=== PATIENT | male | born 1985 | race Caucasian/White ===

== ENCOUNTER 2019-06-28 11:41 | Emergency (ER) | payer SELFPAY ==
[~2019-06-28] VITALS: Ht 175.3 cm; Wt 91.7 kg
--- NOTE | 2019-06-28 12:01 | NUR ---
FIRST CONTACT WITH PT. PT WAS SENT FROM FOR INTERMITTENT CHEST PAIN WITH N/V X1 MO, SOB RESOLVED. PT HAD PNA AND COMPLETED ABX. PT C/O ABD PAIN/N/V/DZY AT THIS TIME. PT'S AOX4. RESPS EVEN AND UNLABORED. ALL MONITORS IN PLACE. CALL LIGHT WITHIN REACH. 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
[2019-06-28] MEDS ORDERED: ASPIRIN 81 MG TABLET CHEW ONE (12:18)
[2019-06-28] MEDS ORDERED: ONDANSETRON 2MG/ML, 2ML ONE (12:18)
[2019-06-28 12:23] LABS: BASOPHILS # (AUTO) 0.02 x10^3/uL (0-0.1); BASOPHILS % (AUTO) 0 % (0-1); EOSINOPHILS # (AUTO) 0.06 x10^3/uL (0-0.4); EOSINOPHILS % (AUTO) 1 % (1-7); LYMPHOCYTES # (AUTO) 1.06 x10^3/uL (1-3.4); LYMPHOCYTES % (AUTO) 17 % (22-44); MD NO; MEAN CORPUSCULAR HEMOGLOBIN 32.2 pg (27.5-34.5); MEAN CORPUSCULAR HGB CONC 33.9 g/dL (33.2-36.2); MEAN PLATELET VOLUME 7.6 fL (7.4-10.4); MONOCYTES # (AUTO) 0.47 x10^3/uL (0.2-0.8); MONOCYTES % (AUTO) 8 % (2-9); NEUTROPHILS % (AUTO) 74 % (42-75); PLATELET COUNT 325 x10^3/uL (130-400); RED BLOOD COUNT 4.96 x10^6/uL (4.38-5.82); RED CELL DISTRIBUTION WIDTH 13.4 % (9.4-14.8)
--- NOTE | 2019-06-28 12:27 | NUR ---
PT REFUSED NAUSEA MEDS AT THIS TIME. PT MEDICATED PER EMAR. PT TOLERATED WELL.
[2019-06-28] MEDS ORDERED: ONDANSETRON 2MG/ML, 2ML IVPush ONE (12:30)
[2019-06-28] MEDS ORDERED: ASPIRIN 81 MG TABLET CHEW PO ONE (12:30)
[2019-06-28] MEDS ORDERED: SODIUM CHLORIDE FLUSH 10ML SYR IVF ONE (12:30)
[2019-06-28 12:33] LABS: ALANINE AMINOTRANSFERASE 71 U/L (12-78); ALBUMIN 4.1 g/dL (3.4-5.0); ANION GAP 4 mmol/L (5-15); CALCIUM 8.9 mg/dL (8.5-10.1); CHLORIDE 109 mmol/L (98-107); CREATININE 1.14 mg/dL (0.7-1.3)
[2019-06-28 12:38] LABS: ALKALINE PHOSPHATASE 97 U/L (45-117); BILIRUBIN,TOTAL 0.9 mg/dL (0.2-1.0); TOTAL PROTEIN 7.6 g/dL (6.4-8.2); TROPONIN I < 0.015 ng/mL (0.000-0.045)
[2019-06-28 13:18] VITALS: BP 113/75
[2019-06-28] MEDS ORDERED: MAALOX/HYOSCYAMINE/LIDOCAINE 45 ML BTL ONE (13:45)
--- NOTE | 2019-06-28 13:47 | NUR ---
PT MEDICATED PER EMAR. PT TOLERATED WELL.
[2019-06-28] MEDS ORDERED: MAALOX/HYOSCYAMINE/LIDOCAINE 45 ML BTL PO ONE (14:00)
--- NOTE | 2019-06-28 14:32 | NUR ---
Patient given discharge instructions and they have confirmed that they understand the instructions. Patient ambulatory with steady gait.
== END 2019-06-28 14:34 | disposition home or self-care (01) ==
LOC: ED 14:25
DX: R07.89 Other chest pain (principal); R11.2 Nausea with vomiting, unspecified
CPT/HCPCS: 36415; 71045; 80053; 83690; 83880; 84484; 85025; 93005; 99284

== ENCOUNTER 2019-09-27 14:48 | Emergency (ER) | payer OTHER ==
[~2019-09-27] VITALS: Ht 175.3 cm; Wt 92.8 kg
[2019-09-27] MEDS ORDERED: SODIUM CHLORIDE FLUSH 10ML SYR IVF ONE (15:30)
[2019-09-27] MEDS ORDERED: SODIUM CHLORIDE 0.9% 1,000ML IVBOLUS ONE (15:30)
[2019-09-27] MEDS ORDERED: ONDANSETRON 2MG/ML, 2ML IVPush ONE (15:30)
--- NOTE | 2019-09-27 15:45 | NUR ---
PT TO ROOM 34 PER PEDIS. PT COMES FROM WITH COMPLAINTS OF EPIGASTRIC CHEST PAIN. PT LAST USED ECTASY 1 WEEK AGO, AND ATE AN EDIBLE 1 WEEK AGO. PT STATES "I HAD THIS PAIN IN JUNE, AND IT WAS JUST MUSCULAR" PT IS A/OX3. PT DOES C/O NAUSEA. PT HAD FLU TEST DONE TODAY AT WHICH WAS NEG, AND COVID TESTING WAS DONE. PT PLACED IN GOWN, PUT ON [id number], GIVEN CALL LIGHT, AND LIGHT SHEET FOR COVER PT WAS AFEBRILE.
[2019-09-27 15:53] LABS: BASOPHILS # (AUTO) 0.02 x10^3/uL (0-0.1); BASOPHILS % (AUTO) 0 % (0-1); EOSINOPHILS # (AUTO) 0.14 x10^3/uL (0-0.4); EOSINOPHILS % (AUTO) 2 % (1-7); LYMPHOCYTES # (AUTO) 1.25 x10^3/uL (1-3.4); LYMPHOCYTES % (AUTO) 14 % (22-44); MD NO; MEAN CORPUSCULAR HEMOGLOBIN 31.5 pg (27.5-34.5); MEAN CORPUSCULAR VOLUME 92.4 fL (81-97); MEAN PLATELET VOLUME 7.6 fL (7.4-10.4); MONOCYTES # (AUTO) 0.81 x10^3/uL (0.2-0.8); MONOCYTES % (AUTO) 9 % (2-9); NEUTROPHILS # (AUTO) 6.74 x10^3/uL (1.8-6.8); NEUTROPHILS % (AUTO) 75 % (42-75); PLATELET COUNT 344 x10^3/uL (130-400); RED BLOOD COUNT 4.98 x10^6/uL (4.38-5.82); RED CELL DISTRIBUTION WIDTH 12.8 % (9.4-14.8)
[2019-09-27 16:04] LABS: ALANINE AMINOTRANSFERASE 30 U/L (12-78); ALBUMIN 4.1 g/dL (3.4-5.0); ANION GAP 6 mmol/L (5-15); CHLORIDE 108 mmol/L (98-107); CREATININE 1.19 mg/dL (0.7-1.3)
[2019-09-27 16:09] LABS: ALKALINE PHOSPHATASE 87 U/L (45-117); BILIRUBIN,TOTAL 0.3 mg/dL (0.2-1.0); TROPONIN I < 0.015 ng/mL (0.000-0.045)
[2019-09-27] MEDS ORDERED: ONDANSETRON 2MG/ML, 2ML ONE (16:19)
--- NOTE | 2019-09-27 17:34 | NUR ---
DISCHARGE INSTRUCTIONS GIVEN TO PATIENT. PT GIVEN WORK NOTE, AND INSTRUCTED ON WHO HE NEEDS TO CONTACT TO GET HIS COVID RESULTS. PT VERBALIZES UNDERSTANDING OF ALL INSTRUCTIONS, FOLLOW UP AND RESULTING NFORMATION. PT AMBULATED OUT OF ED PER PEDIS.
[2019-09-27 17:36] VITALS: BP 126/86
== END 2019-09-27 17:46 | disposition home or self-care (01) ==
LOC: ED 15:23
DX: R07.89 Other chest pain (principal); R50.9 Fever, unspecified; R00.0 Tachycardia, unspecified; R11.0 Nausea
CPT/HCPCS: 36415; 71045; 80053; 83880; 84484; 85025; 85379; 93005; 96374; 99285; J2405; J7030